=== PATIENT | male | born 1940 | race Caucasian/White ===

== ENCOUNTER 2017-01-09 12:42 | Outpatient (CLI) | payer MEDICARE, OTHER | END 2017-01-09 12:43 | disposition home or self-care (01) | LOC: LAB.S 12:42 | PROVIDERS: ATTEND Nurse Practitioner Family | DX: Z12.5 Encounter for screening for malignant neoplasm of prostate (principal) | CPT/HCPCS: 36415; G0103; 84153 ==

== ENCOUNTER 2017-01-11 11:24 | Outpatient (CLI) | payer MEDICARE, OTHER ==
[2017-01-11 17:58] LABS: PSA FREE 2.48 ng/mL (0.16-2.81)
[2017-01-11 17:59] LABS: PSA TOTAL 11.35 ng/mL (0.000-2.000)
== END 2017-01-11 11:25 | disposition home or self-care (01) ==
LOC: LAB.F 11:24
PROVIDERS: ATTEND Nurse Practitioner Family
DX: R97.20 Elevated prostate specific antigen [PSA] (principal)
CPT/HCPCS: 36415; 84154

== ENCOUNTER 2018-04-19 08:42 | Outpatient (CLI) | payer MEDICARE, OTHER ==
[2018-04-19 12:25] LABS: ALBUMIN 3.7 g/dL (3.2-5.5); ALBUMIN/GLOBULIN RATIO 1.1 (1.0-2.2); ALKALINE PHOSPHATASE 67 IU/L (42-121); ALT ALANINE AMINOTRANSFERASE 25 IU/L (10-60); AST ASPARTATE AMINOTRANSFERASE 26 IU/L (10-42); BILIRUBIN,TOTAL 0.6 mg/dL (0.2-1.0); BUN - BLOOD UREA NITROGEN 24 mg/dL (6-20); CALCIUM 9.3 mg/dL (8.5-10.3); CARBON DIOXIDE - CO2 27 mmol/L (21-32); CHLORIDE 102 mmol/L (101-111); CHOL/HDL RATIO 4.3 (<5.0); CHOLESTEROL 162 mg/dL; CREATININE 1.1 mg/dL (0.6-1.2); GFR - MDRD 65 (>89); GLUCOSE 108 mg/dL (70-100); HDL CHOLESTEROL 38 mg/dL; LDL CHOLESTEROL,CALCULATED 79 mg/dL; LDL/HDL RATIO 2.1 (<3.6); SODIUM 134 mmol/L (135-145); TOTAL PROTEIN 7.2 g/dL (6.7-8.2); VLDL CHOLESTEROL 45 mg/dL
== END 2018-04-19 08:43 | disposition home or self-care (01) ==
LOC: LAB.F 08:42
PROVIDERS: ATTEND Internal Medicine Cardiovascular Disease
DX: E78.00 Pure hypercholesterolemia, unspecified (principal)
CPT/HCPCS: 36415; 80053; 80061; 83721

== ENCOUNTER 2018-05-22 08:00 | Outpatient (CLI) | payer MEDICARE, OTHER ==
[2018-05-22 18:17] LABS: CALCIUM 9.4 mg/dL (8.5-10.3); CREATININE 1.3 mg/dL (0.6-1.2)
== END 2018-05-22 23:59 | disposition home or self-care (01) ==
LOC: LAB.F 08:00
PROVIDERS: ATTEND Internal Medicine Cardiovascular Disease
DX: E87.1 Hypo-osmolality and hyponatremia (principal)
CPT/HCPCS: 36415; 80048; 83930; 84443

== ENCOUNTER 2018-06-14 14:08 | Outpatient (CLI) | payer MEDICARE, OTHER ==
[2018-06-14 17:01] LABS: CALCIUM 9.4 mg/dL (8.5-10.3); CREATININE 1.1 mg/dL (0.6-1.2)
== END 2018-06-14 14:09 | disposition home or self-care (01) ==
LOC: LAB.F 14:08
PROVIDERS: ATTEND Internal Medicine Cardiovascular Disease
DX: E87.1 Hypo-osmolality and hyponatremia (principal)
CPT/HCPCS: 36415; 80048; 81599; 83930

== ENCOUNTER 2020-09-22 09:32 | Outpatient (CLI) | payer MEDICARE, OTHER ==
[2020-09-22 17:26] LABS: ALBUMIN 4.1 g/dL (3.2-5.5); ALBUMIN/GLOBULIN RATIO 1.2 (1.0-2.2); ALKALINE PHOSPHATASE 68 IU/L (42-121); ALT ALANINE AMINOTRANSFERASE 21 IU/L (10-60); AST ASPARTATE AMINOTRANSFERASE 22 IU/L (10-42); BILIRUBIN,TOTAL 0.8 mg/dL (0.2-1.0); BUN - BLOOD UREA NITROGEN 24 mg/dL (6-20); CALCIUM 9.3 mg/dL (8.5-10.3); CARBON DIOXIDE - CO2 29 mmol/L (21-32); CHLORIDE 101 mmol/L (101-111); CHOL/HDL RATIO 3.1 (<5.0); CHOLESTEROL 138 mg/dL; CREATININE 1.2 mg/dL (0.6-1.2); GFR - MDRD 58 (>89); GLUCOSE 97 mg/dL (70-100); HDL CHOLESTEROL 44 mg/dL; LDL CHOLESTEROL,CALCULATED 71 mg/dL; LDL/HDL RATIO 1.6 (<3.6); POTASSIUM 4.2 mmol/L (3.5-5.0); SODIUM 137 mmol/L (135-145); TOTAL PROTEIN 7.5 g/dL (6.7-8.2); TRIGLYCERIDES 114 mg/dL; VLDL CHOLESTEROL 23 mg/dL
== END 2020-09-22 09:33 | disposition home or self-care (01) ==
LOC: LAB.S 09:32
PROVIDERS: ATTEND Internal Medicine Cardiovascular Disease
DX: E78.00 Pure hypercholesterolemia, unspecified (principal)
CPT/HCPCS: 36415; 80053; 80061; 83721

== ENCOUNTER 2022-10-10 08:00 | Outpatient (CLI) | payer MEDICARE ==
[2022-10-10 20:40] LABS: BILIRUBIN,URINE NEGATIVE (NEGATIVE); GLUCOSE, URINE (UA) NEGATIVE (NEGATIVE); KETONES,URINE (UA) NEGATIVE (NEGATIVE); LEUKOCYTE ESTERASE, URINE NEGATIVE (NEGATIVE); NITRITE,URINE NEGATIVE (NEGATIVE); OCCULT BLOOD,URINE MODERATE (NEGATIVE); PROTEIN,URINE NEGATIVE (NEGATIVE); UROBILINOGEN,URINE 0.2 (NORMAL) E.U./dL (NORMAL)
[2022-10-10 20:58] LABS: BACTERIA,URINE Few /HPF (None Seen); CLARITY,URINE CLEAR (CLEAR); RBC,URINE TNTC /HPF (0-5); SQUAMOUS EPITHELIAL CELL,UR RARE Squamous (<= Few)
== END 2022-10-10 23:59 | disposition home or self-care (01) ==
LOC: LAB 08:00
PROVIDERS: ATTEND Emergency Medicine
DX: R33.8 Other retention of urine (principal)
CPT/HCPCS: 81001; 81003; 87086

== ENCOUNTER 2022-10-11 09:56 | Outpatient (CLI) | payer MEDICARE ==
[2022-10-11 14:58] LABS: BASOPHILS % (AUTO) 0.3 %; EOSINOPHILS # (AUTO) 0.1 10^3/uL (0.0-0.7); EOSINOPHILS % (AUTO) 0.7 %; HCT - HEMATOCRIT 50.3 % (42.0-52.0); HGB - HEMOGLOBIN 16.4 g/dL (14.0-18.0); LYMPHOCYTES # (AUTO) 1.7 10^3/uL (1.5-3.5); LYMPHOCYTES % (AUTO) 14.2 %; MEAN CORPUSCULAR HEMOGLOBIN 29.9 pg (27.0-31.0); MEAN CORPUSCULAR HGB CONC 32.6 g/dL (32.0-36.0); MEAN CORPUSCULAR VOLUME 91.6 fL (80.0-94.0); MEAN PLATELET VOLUME 10.6 fL (7.4-11.4); MONOCYTES # (AUTO) 1.1 10^3/uL (0.0-1.0); MONOCYTES % (AUTO) 9.4 %; NEUTROPHILS # (AUTO) 9.2 10^3/uL (1.5-6.6); NEUTROPHILS % (AUTO) 75.1 %; PLT - PLATELET COUNT 280 10^3/uL (130-450); RED BLOOD COUNT 5.49 10^6/uL (4.70-6.10); RED CELL DISTRIBUTION WIDTH 15.3 % (12.0-15.0); WHITE BLOOD COUNT 12.2 x10^3/uL (4.8-10.8)
[2022-10-11 15:43] LABS: CALCIUM 9.7 mg/dL (8.5-10.3); CREATININE 1.1 mg/dL (0.6-1.3); POTASSIUM 4.5 mmol/L (3.5-4.5)
== END 2022-10-11 09:57 | disposition home or self-care (01) ==
LOC: LAB.S 09:56
PROVIDERS: ATTEND Emergency Medicine
DX: N40.1 Benign prostatic hyperplasia with lower urinary tract symptoms (principal); R33.8 Other retention of urine
CPT/HCPCS: 36415; 80048; 84153; 85025

== ENCOUNTER 2022-10-14 08:00 | Outpatient (CLI) | payer MEDICARE | END 2022-10-14 23:59 | disposition home or self-care (01) | LOC: LAB.S 08:00 | PROVIDERS: ATTEND Registered Nurse | DX: Z04.89 Encounter for examination and observation for other specified reasons (principal) | CPT/HCPCS: 87086 ==

== ENCOUNTER 2023-02-24 09:53 | Outpatient (CLI) | payer MEDICARE ==
[2023-02-24 14:54] LABS: BASOPHILS % (AUTO) 0.4 %; EOSINOPHILS # (AUTO) 0.2 10^3/uL (0.0-0.7); EOSINOPHILS % (AUTO) 1.9 %; HCT - HEMATOCRIT 51.2 % (42.0-52.0); HGB - HEMOGLOBIN 16.1 g/dL (14.0-18.0); LYMPHOCYTES # (AUTO) 2.1 10^3/uL (1.5-3.5); LYMPHOCYTES % (AUTO) 26.6 %; MEAN CORPUSCULAR HEMOGLOBIN 29.4 pg (27.0-31.0); MEAN CORPUSCULAR HGB CONC 31.4 g/dL (32.0-36.0); MEAN CORPUSCULAR VOLUME 93.4 fL (80.0-94.0); MEAN PLATELET VOLUME 10.8 fL (7.4-11.4); MONOCYTES # (AUTO) 0.8 10^3/uL (0.0-1.0); MONOCYTES % (AUTO) 10.2 %; NEUTROPHILS # (AUTO) 4.9 10^3/uL (1.5-6.6); NEUTROPHILS % (AUTO) 60.5 %; PLT - PLATELET COUNT 280 10^3/uL (130-450); RED BLOOD COUNT 5.48 10^6/uL (4.70-6.10)
[2023-02-24 15:00] LABS: ALBUMIN/GLOBULIN RATIO 1.3 (1.0-2.2); ALKALINE PHOSPHATASE 73 IU/L (42-121); ALT ALANINE AMINOTRANSFERASE 17 IU/L (10-60); AST ASPARTATE AMINOTRANSFERASE 16 IU/L (10-42); BILIRUBIN,TOTAL 0.6 mg/dL (0.2-1.0); BUN - BLOOD UREA NITROGEN 24 mg/dL (6-20); CARBON DIOXIDE - CO2 31 mmol/L (21-32); CHLORIDE 103 mmol/L (101-111); CHOL/HDL RATIO 3.7 (<5.0); CHOLESTEROL 141 mg/dL; CREATININE 1.1 mg/dL (0.6-1.3); GFR - MDRD 64 (>89); GLUCOSE 89 mg/dL (74-104); HDL CHOLESTEROL 38 mg/dL; LDL CHOLESTEROL,CALCULATED 70 mg/dL; LDL/HDL RATIO 1.8 (<3.6); POTASSIUM 4.3 mmol/L (3.5-4.5); SODIUM 138 mmol/L (135-145); TOTAL PROTEIN 7.1 g/dL (6.4-8.9); TRIGLYCERIDES 163 mg/dL (48-352); VLDL CHOLESTEROL 33 mg/dL
== END 2023-02-24 09:54 | disposition home or self-care (01) ==
LOC: LAB.S 09:53
PROVIDERS: ATTEND Internal Medicine Cardiovascular Disease
DX: I10 Essential (primary) hypertension (principal); E78.00 Pure hypercholesterolemia, unspecified
CPT/HCPCS: 36415; 80053; 80061; 83721; 85025

== ENCOUNTER 2023-10-30 12:53 | Emergency (ER) | payer MEDICARE ==
--- NOTE | 2023-10-30 14:13 | ED Physician Documentation ---
History of Present Illness - Stated complaint Stated Complaint: - Chief complaint Chief Complaint: General - Additonal information Additional information: 83-year-old male with history of ID. Urinary retention presents emergency department for urinary retention. He says that he does not have a urologist we had something similar happen about a year or 2 ago where he required a Larson catheter and some medicine and then had the Larson catheter removed and the symptoms resolved and was able to void without any difficulty. PD PAST MEDICAL HISTORY - Past Medical History Past Medical History: Yes Cardiovascular: [place] Respiratory: None Neuro: None Endocrine/Autoimmune: None GI: None : None HEENT: None Psych: None Musculoskeletal: None Derm: None - Past Surgical History Past Surgical History: Yes - Present Medications Home Medications: Ambulatory Orders Medication Instructions Recorded Confirmed Tamsulosin [Flomax] 0.4 mg PO DAILY 30 Days #30 cap 10/30/23 - Allergies Allergies/Adverse Reactions: Allergies Allergy/AdvReac Type Severity Reaction Status Date / Time No Known Drug Allergies Allergy Verified 10/30/23 13:17 - Social History Does the pt smoke?: Yes Smoking Status: Current every day smoker - Immunizations Immunizations are current?: Yes PD ED PE NORMAL - Vitals Vital signs reviewed: Yes - General General: Alert and oriented X 3, No acute distress, Well developed/nourished - HEENT HEENT: Atraumatic, PERRL - Neck Neck: Supple, no meningeal sign, No bony TTP - Cardiac Cardiac: RRR - Respiratory Respiratory: No respiratory distress, Clear bilaterally - Abdomen Abdomen: Normal bowel sounds - Back Back: No CVA TTP - Psych Psych: Normal mood Results - Vitals Vitals: Oxygen O2 Source Room air - Labs Labs: Laboratory Tests 10/30/23 14:45 Urine Color YELLOW Urine Clarity CLEAR Urine pH 7.0 Ur Specific [place] 1.020 Urine Protein NEGATIVE Urine Glucose (UA) NEGATIVE Urine Ketones NEGATIVE Urine Occult Blood LARGE H Urine Nitrite NEGATIVE Urine Bilirubin NEGATIVE Urine Urobilinogen 0.2 (NORMAL) Ur Leukocyte Esterase NEGATIVE Urine RBC TNTC H Urine WBC 0-3 Ur Squamous Epith Cells NONE SEEN Urine Bacteria None Seen Ur Microscopic Review INDICATED Urine Culture Comments NOT INDICATED PD Medical Decision Making - ED course ED course: 83-year-old male presents emergency department for urinary retention. A Larson catheter was placed and he had about 950 cc drained from his bladder with significant improvement of symptoms. He was started on Flomax in the emergency department and a prescription of Flomax sent to his preferred pharmacy. All questions have been answered return precautions have been given patient safe for discharge at this time. He is told to follow-up with Dr. Ray Rojas outpatient and given information on how and when to follow-up with them as well as get established with a primary care provider. Departure - Departure Disposition: 01 Home, Self Care Clinical Impression: Urinary retention Instructions: ED Catheter Care Larson Prescriptions: Tamsulosin [Flomax] 0.4 mg PO DAILY 30 Days #30 cap Comments: Thank you for trusting us with your care. We have placed a Larson catheter and and started you on a medication called Flomax to help with your urinary r etention. Is very important that get established with a primary care provider soon as possible I would recommend calling Hussein Contreras MD their phone number is [phone]. They can see you tomorrow for same-day appointment and get you a urologist referral and get you in with a another primary care provider. Please come back to the ER if you are having any decreased urinary output, fevers or chills, nausea vomiting or any other concerning worsening symptoms. Forms: PCP List Discharge Date/Time: 10/30/23 16:06
[2023-10-30 14:50] LABS: BILIRUBIN,URINE NEGATIVE (NEGATIVE); GLUCOSE, URINE (UA) NEGATIVE (NEGATIVE); KETONES,URINE (UA) NEGATIVE (NEGATIVE); LEUKOCYTE ESTERASE, URINE NEGATIVE (NEGATIVE); NITRITE,URINE NEGATIVE (NEGATIVE); OCCULT BLOOD,URINE LARGE (NEGATIVE); PROTEIN,URINE NEGATIVE (NEGATIVE); UROBILINOGEN,URINE 0.2 (NORMAL) E.U./dL (NORMAL)
[2023-10-30 15:23] LABS: CLARITY,URINE CLEAR (CLEAR)
[2023-10-30 15:24] LABS: BACTERIA,URINE None Seen /HPF (None Seen); RBC,URINE TNTC /HPF (0-5); SQUAMOUS EPITHELIAL CELL,UR NONE SEEN (<= Few); WBC,URINE 0-3 /HPF (0-3)
[2023-10-30 15:33] VITALS: O2SAT 100
[2023-10-30] MEDS: TAMSULOSIN 0.4 MG CAPSULE PO STA (15:43)
[2023-10-30 16:16] VITALS: BP 138/86
== END 2023-10-30 16:06 | disposition home or self-care (01) ==
LOC: ED 12:53
DX: R33.9 Retention of urine, unspecified (principal); I25.2 Old myocardial infarction; F17.200 Nicotine dependence, unspecified, uncomplicated
CPT/HCPCS: 51702; 81001; 99283; A9270; 81003; 87086

== ENCOUNTER 2023-10-31 14:46 | Emergency (ER) | payer MEDICARE ==
[2023-10-31 15:04] VITALS: BP 118/67; O2SAT 100
--- NOTE | 2023-10-31 16:11 | ED Physician Documentation ---
PD HPI ABD PAIN - Stated complaint Stated Complaint: - Chief complaint Chief Complaint: Abd Pain - Additional information Additional information: 83-year-old male was here yesterday for urinary retention he had to have a Larson catheter placed to help drain his bladder he said that his bladder has been draining without any difficulty but he comes in today for burning at the tip of his penis. He denies any CVA tenderness he denies any abdominal pain no fevers or chills he does have hematuria but he is also chronically anticoagulated due to history of [place]. PD PAST MEDICAL HISTORY - Past Medical History Cardiovascular: [place] Respiratory: None Neuro: None Endocrine/Autoimmune: None GI: None : None HEENT: None Psych: None Musculoskeletal: None Derm: None - Past Surgical History Past Surgical History: Yes - Present Medications Home Medications: Ambulatory Orders Medication Instructions Recorded Confirmed Tamsulosin [Flomax] 0.4 mg PO DAILY 30 Days #30 cap 10/30/23 Solifenacin Succinate [Vesicare] 5 mg PO DAILY #20 tablet 11/01/23 - Allergies Allergies/Adverse Reactions: Allergies Allergy/AdvReac Type Severity Reaction Status Date / Time No Known Drug Allergies Allergy Verified 10/30/23 13:17 - Social History Does the pt smoke?: Yes Smoking Status: Current every day smoker - Immunizations Immunizations are current?: Yes PD ED PE NORMAL - Vitals Vital signs reviewed: Yes - General General: Alert and oriented X 3, No acute distress, Well developed/nourished - HEENT HEENT: Atraumatic, PERRL - Abdomen Abdomen: Normal bowel sounds, Soft, Non tender, Non distended, No organomegaly - Back Back: No CVA TTP - Derm Derm: Normal color, Warm and dry, No rash - Extremities Extremities: No edema, No calf tenderness / cord Results - Vitals Vitals: Oxygen O2 Source Room air - Labs Labs: Microbiology 10/31/23 18:21 Urine Culture - Final Urine,Clean Catch No growth Laboratory Tests 10/31/23 10/31/23 10/31/23 16:57 16:57 18:21 WBC 9.7 RBC 5.31 Hgb 15.9 Hct 48.7 MCV 91.7 MCH 29.9 MCHC 32.6 RDW 15.9 H Plt Count 301 MPV 10.2 Neut # (Auto) 7.1 H Lymph # (Auto) 1.7 [place] # (Auto) 0.8 Eos # (Auto) 0.1 Baso # (Auto) 0.0 Absolute Nucleated RBC 0.00 Nucleated RBC % 0.0 Sodium 138 Potassium 4.7 H Chloride 103 Carbon Dioxide 28 Anion Gap 7.0 BUN 26 H Creatinine 1.3 Estimated GFR (MDRD) 52 L Glucose 99 Calcium 9.6 Magnesium 2.0 Total Bilirubin 0.4 AST 15 ALT 14 Alkaline Phosphatase 71 Total Protein 6.5 Albumin 3.7 Globulin 2.8 Albumin/Globulin Ratio 1.3 Lipase 41 Urine Color RED/BLOODY Urine Clarity BLOODY Urine pH 6.0 Ur Specific [place] >=1.030 H Urine Protein >=300 H Urine Glucose (UA) NEGATIVE Urine Ketones TRACE Urine Occult Blood LARGE H Urine Nitrite POSITIVE H Urine Bilirubin NEGATIVE Urine Urobilinogen 1 (NORMAL) Ur Leukocyte Esterase TRACE H Urine RBC TNTC H Urine WBC 6-10 H Ur Squamous Epith Cells NONE SEEN Urine Bacteria None Seen Ur Microscopic Review INDICATED Urine Culture Comments INDICATED PD Medical Decision Making - ED course ED course: 83-year-old male presents emergency department for urinary retention. Uro-Jet was applied to the penis and Larson catheter was swapped for smaller size catheter it does appear that the sticker of the catheter to hold the Larson in place did not have a very long leash which could have been causing a tugging sensation to the tip of the penis. There was 1 small clot when swapping out the Larson catheter patient was told to discontinue his blood thinners until he is able to follow-up with urology outpatient to help with hematuria and to go home and drink plenty of fluids. Patient was offered an abdomen pelvis CT but he said that he wanted to just get home he is not having any abdominal pain or pelvic pain no CVA tenderness no fevers or chills so I believe this is fair. Patient taught how to manage his Larson catheter at home strict ER return precau tions given all questions answered patient is safe for discharge. Departure - Departure Disposition: 01 Home, Self Care Clinical Impression: Hematuria Instructions: ED Catheter Care Larson, ED Retention Urinary Male Comments: Thank you for trusting us with your care. We have swapped out your Larson catheter for smaller ones to see if this helps with the penile pain that you are experiencing. It is very important going home that you are drinking plenty of fluids you are very dehydrated right now. Follow-up with Dr. Ray Rojas as scheduled and do not take any of your blood thinners until you are able to see Dr. Ray Rojas.Please come back to the ER if you are having any worsening abdominal pain back pain, Fevers chills or decreased urinary output. Forms: PCP List Discharge Date/Time: 10/31/23 18:27
[2023-10-31] MEDS: LIDOCAINE 2% URO-JET 5 ML SYRINGE UR STA (16:38)
[2023-10-31] MEDS ORDERED: iohexoL-300 100 ML VIAL ONE (16:41)
[2023-10-31 17:02] LABS: BASOPHILS % (AUTO) 0.2 %; EOSINOPHILS # (AUTO) 0.1 10^3/uL (0.0-0.7); EOSINOPHILS % (AUTO) 0.5 %; HCT - HEMATOCRIT 48.7 % (42.0-52.0); HGB - HEMOGLOBIN 15.9 g/dL (14.0-18.0); LYMPHOCYTES # (AUTO) 1.7 10^3/uL (1.5-3.5); LYMPHOCYTES % (AUTO) 17.5 %; MEAN CORPUSCULAR HEMOGLOBIN 29.9 pg (27.0-31.0); MEAN CORPUSCULAR HGB CONC 32.6 g/dL (32.0-36.0); MEAN CORPUSCULAR VOLUME 91.7 fL (80.0-94.0); MEAN PLATELET VOLUME 10.2 fL (7.4-11.4); MONOCYTES # (AUTO) 0.8 10^3/uL (0.0-1.0); MONOCYTES % (AUTO) 8.4 %; NEUTROPHILS # (AUTO) 7.1 10^3/uL (1.5-6.6); PLT - PLATELET COUNT 301 10^3/uL (130-450); RED BLOOD COUNT 5.31 10^6/uL (4.70-6.10); RED CELL DISTRIBUTION WIDTH 15.9 % (12.0-15.0); WHITE BLOOD COUNT 9.7 x10^3/uL (4.8-10.8)
[2023-10-31 17:17] LABS: ALBUMIN 3.7 g/dL (3.2-5.5); ALBUMIN/GLOBULIN RATIO 1.3 (1.0-2.2); BILIRUBIN,TOTAL 0.4 mg/dL (0.2-1.0); CALCIUM 9.6 mg/dL (8.5-10.3); CREATININE 1.3 mg/dL (0.6-1.3); POTASSIUM 4.7 mmol/L (3.5-4.5); TOTAL PROTEIN 6.5 g/dL (6.4-8.9)
[2023-10-31] MEDS ORDERED: SODIUM CHLORIDE 0.9% 1,000 ML IV ONE (17:34)
[2023-10-31 18:44] LABS: BILIRUBIN,URINE NEGATIVE (NEGATIVE); GLUCOSE, URINE (UA) NEGATIVE (NEGATIVE); KETONES,URINE (UA) TRACE mg/dL (NEGATIVE); LEUKOCYTE ESTERASE, URINE TRACE (NEGATIVE); NITRITE,URINE POSITIVE (NEGATIVE); OCCULT BLOOD,URINE LARGE (NEGATIVE); PROTEIN,URINE >=300 mg/dL (NEGATIVE); UROBILINOGEN,URINE 1 (NORMAL) E.U./dL (NORMAL)
[2023-10-31 18:46] LABS: CLARITY,URINE BLOODY (CLEAR)
[2023-10-31 18:47] LABS: BACTERIA,URINE None Seen /HPF (None Seen); RBC,URINE TNTC /HPF (0-5); SQUAMOUS EPITHELIAL CELL,UR NONE SEEN (<= Few)
== END 2023-10-31 18:27 | disposition home or self-care (01) ==
LOC: ED 14:46
DX: N48.89 Other specified disorders of penis (principal); R31.0 Gross hematuria; E86.0 Dehydration; I25.2 Old myocardial infarction; F17.200 Nicotine dependence, unspecified, uncomplicated; Z79.01 Long term (current) use of anticoagulants
CPT/HCPCS: 36415; 80053; 81001; 81003; 83690; 83735; 85025; 87086; 99283; 99284

== ENCOUNTER 2023-11-01 07:34 | Outpatient (CLI) | payer MEDICARE | END 2023-11-01 23:59 | disposition critical access hospital (66) | LOC: EMS 07:34 | DX: R31.0 Gross hematuria (principal); R30.0 Dysuria; T83.031A Leakage of indwelling urethral catheter, initial encounter; Y82.8 Other medical devices associated with adverse incidents | CPT/HCPCS: A0425; A0429 ==

== ENCOUNTER 2023-11-01 08:11 | Emergency (ER) | payer MEDICARE ==
--- NOTE | 2023-11-01 08:26 | ED Physician Documentation ---
PD HPI MALE - Stated complaint Stated Complaint: - Chief complaint Chief Complaint: UTI - History obtained from History obtained from: Patient - History of Present Illness Timing - onset: Today (recent placement of valiente for urinary retention. Having urine out from around catheter at times with lower abd cramping. No noted clots or blood.) PD PAST MEDICAL HISTORY - Past Medical History Cardiovascular: [place] Respiratory: None Neuro: None Endocrine/Autoimmune: None GI: None : None HEENT: None Psych: None Musculoskeletal: None Derm: None - Past Surgical History Past Surgical History: Yes - Present Medications Home Medications: Ambulatory Orders Medication Instructions Recorded Confirmed Tamsulosin [Flomax] 0.4 mg PO DAILY 30 Days #30 cap 10/30/23 Solifenacin Succinate [Vesicare] 5 mg PO DAILY #20 tablet 11/01/23 - Allergies Allergies/Adverse Reactions: Allergies Allergy/AdvReac Type Severity Reaction Status Date / Time No Known Drug Allergies Allergy Verified 10/30/23 13:17 - Social History Does the pt smoke?: Yes Smoking Status: Current every day smoker - Immunizations Immunizations are current?: Yes - POLST Patient has POLST: No PD ED PE NORMAL - Vitals Vital signs reviewed: Yes - General General: Alert and oriented X 3, No acute distress, Well developed/nourished - Abdomen Abdomen: Soft, Non distended - Derm Derm: Normal color, Warm and dry Results - Vitals Vitals: Oxygen O2 Source Room air PD Medical Decision Making - ED course Complexity details: re-evaluated patient (nursing states the valiente irrigated easily and urine back out without clots. Presume bladder spasms leading to urine out around. ), considered differential (he is having urine out from around the catheter recently placed. Lower abd cramps at times. No blood in urine of note. ), d/w patient Departure - Departure Disposition: 01 Home, Self Care Clinical Impression: Bladder spasms Valiente catheter problem Qualifiers: Encounter type: subsequent encounter Qualified Code(s): T83.9XXD - Unspecified complication of genitourinary prosthetic device, implant and graft, subsequent encounter Condition: Stable Record reviewed to determine appropriate education?: Yes Follow-Up: Bob Bell MD [Provider Admit Priv/Credential] - Prescriptions: Solifenacin Succinate [Vesicare] 5 mg PO DAILY #20 tablet Comments: The catheter irrigates easily and no clots are out. It drains appropriately. There could be some element of the balloon on the catheter floating up and allowing drainage around and therefore leaking around the catheter. The leg clamp with the tubing is meant to hold it a bit better in position so it does not move around as easily. You do not want it to be tight at the penis however. Otherwise common cause for your symptoms can be bladder spasms due to the irritation of the catheter and force in the urine out faster with the same consequence of it leaking around the tubing. On we can add a bladder antispasmodic. Continue with your Flomax which is doing a different thing. Follow-up with urology. Discharge Date/Time: 11/01/23 09:25
[2023-11-01] MEDS ORDERED: TOLTERODINE LA 2 MG CAPSULE PO STA (08:53)
[2023-11-01] MEDS: SOLIFENACIN SUCCINATE 5 MG TABLET PO ONE (09:23)
[2023-11-01 09:27] VITALS: BP 132/82; O2SAT 100
== END 2023-11-01 09:25 | disposition home or self-care (01) ==
LOC: EDUNIT# → ED 08:11
DX: T83.038A Leakage of other urinary catheter, initial encounter (principal); N32.89 Other specified disorders of bladder; F17.200 Nicotine dependence, unspecified, uncomplicated; Z79.899 Other long term (current) drug therapy
CPT/HCPCS: 51700; 99283; 99284; A9270

== ENCOUNTER 2023-11-15 13:37 | Emergency (ER) | payer MEDICARE ==
--- NOTE | 2023-11-15 13:48 | ED Physician Documentation ---
PD HPI MALE - Stated complaint Stated Complaint: - Chief complaint Chief Complaint: General - History obtained from History obtained from: Patient - History of Present Illness Timing - onset: Today Timing - duration: Hours (He had his Valiente catheter in due to acute urinary retention for about a week and was removed 9 days ago. He had been having some decreased urination in the interval time but noticed a significant decrement in output the past day or so it dribbles only and then none the last several hours. Pain/full) Timing - details: Gradual onset, Still present Associated symptoms: Unable to urinate Similar symptoms before: Diagnosis (recent dx of urinary retention with valiente for a week or so. Has appt agin with Urology next Monday.) Recently seen: Clinic Review of Systems Constitutional: denies: Fever, Chills : denies: Discharge PD PAST MEDICAL HISTORY - Past Medical History Cardiovascular: [place] Respiratory: None Neuro: None Endocrine/Autoimmune: None GI: None : None HEENT: None Psych: None Musculoskeletal: None Derm: None - Past Surgical History Past Surgical History: Yes - Present Medications Home Medications: Ambulatory Orders Medication Instructions Recorded Confirmed Tamsulosin [Flomax] 0.4 mg PO DAILY 30 Days #30 cap 10/30/23 Solifenacin Succinate [Vesicare] 5 mg PO DAILY #20 tablet 11/01/23 - Allergies Allergies/Adverse Reactions: Allergies Allergy/AdvReac Type Severity Reaction Status Date / Time No Known Drug Allergies Allergy Verified 11/15/23 13:45 - Social History Does the pt smoke?: Yes Smoking Status: Current every day smoker - Immunizations Immunizations are current?: Yes - POLST Patient has POLST: No PD ED PE NORMAL - Vitals Vital signs reviewed: Yes - General General: Alert and oriented X 3, Well developed/nourished - Abdomen Abdomen: Normal bowel sounds, Soft, Other (fullness and tender in lower abd/suprapubic area c/w full bladder. ) - Male Male : Other (normal external appearance. ) - Derm Derm: Normal color Results - Vitals Vitals: Vital Signs - 24 hr 11/15/23 11/15/23 13:41 15:20 Temperature 36.4 C L 36.3 C L Heart Rate 81 75 Respiratory 18 16 Rate Blood Pressure 167/88 H 133/73 H O2 Saturation 99 99 Oxygen O2 Source Room air - Labs Labs: Laboratory Tests 11/15/23 14:27 Urine Color YELLOW Urine Clarity CLOUDY Urine pH 7.0 Ur Specific [place] 1.025 Urine Protein 100 H Urine Glucose (UA) NEGATIVE Urine Ketones NEGATIVE Urine Occult Blood MODERATE H Urine Nitrite NEGATIVE Urine Bilirubin NEGATIVE Urine Urobilinogen 0.2 (NORMAL) Ur Leukocyte Esterase LARGE H Urine RBC 0-5 Urine WBC >25 H Urine WBC Clumps PRESENT Ur Squamous Epith Cells NONE SEEN Urine Bacteria Moderate H Ur Microscopic Review INDICATED Urine Culture Comments INDICATED PD Medical Decision Making - ED course Complexity details: reviewed results, considered differential (symptoms c/w urinary retention and full bladder with discomfort. Valiente by nursing with 700 ml out. possible UTI on UA; await cx. Has appt with Urology next week on follow up of recent valiente/etc. ), d/w patient Departure - Departure Disposition: 01 Home, Self Care Clinical Impression: Acute on chronic urinary retention Condition: Stable Record reviewed to determine appropriate education?: Yes Follow-Up: Bob Bell MD [Provider Admit Priv/Credential] - Comments: The Catheter drained about 700 mL which is a fair amount. We would leave the catheter in and have you do the care of it as you had previously. Follow-up with urology on the third as planned. No signs of infection of the urine at this time. Forms: PCP List Discharge Date/Time: 11/15/23 15:21
[2023-11-15 13:50] VITALS: O2SAT 99
[2023-11-15] MEDS: LIDOCAINE 2% URO-JET 5 ML SYRINGE UR STA (14:21)
[2023-11-15 14:34] LABS: BILIRUBIN,URINE NEGATIVE (NEGATIVE); CLARITY,URINE CLOUDY (CLEAR); GLUCOSE, URINE (UA) NEGATIVE (NEGATIVE); KETONES,URINE (UA) NEGATIVE (NEGATIVE); LEUKOCYTE ESTERASE, URINE LARGE (NEGATIVE); NITRITE,URINE NEGATIVE (NEGATIVE); OCCULT BLOOD,URINE MODERATE (NEGATIVE); PROTEIN,URINE 100 mg/dL (NEGATIVE); UROBILINOGEN,URINE 0.2 (NORMAL) E.U./dL (NORMAL)
[2023-11-15 14:42] LABS: WBC,URINE >25 /HPF (0-3)
[2023-11-15 14:43] LABS: BACTERIA,URINE Moderate /HPF (None Seen); RBC,URINE 0-5 /HPF (0-5); SQUAMOUS EPITHELIAL CELL,UR NONE SEEN (<= Few); WBC CLUMPS,URINE PRESENT
[2023-11-15 15:23] VITALS: BP 133/73
--- NOTE | 2023-11-18 13:55 | ED Physician Documentation ---
ED Addendum - Addendum Addendum: 11/18/23 13:54 Reviewed culture and sent prescription for Macrobid 100 mg p.o. twice daily #10 to [facility] in [place] and left a voicemail for the patient to call us back.
== END 2023-11-15 15:21 | disposition home or self-care (01) ==
LOC: ED 13:37
DX: R33.9 Retention of urine, unspecified (principal); F17.200 Nicotine dependence, unspecified, uncomplicated
CPT/HCPCS: 51702; 81001; 81003; 87077; 87086; 87181; 99282; 99283